=== PATIENT | female | born 1990 | race African-American/Black ===

== ENCOUNTER 2016-06-05 16:06 | Emergency (ER) | payer SELFPAY ==
[~2016-06-05] VITALS: Ht 157.5 cm; Wt 78.0 kg
[~2016-06-05 16:06] MED LIST: ERYT1O RIGHT EYE
[2016-06-05 16:07] VITALS: BP 129/84; PULSE 78; RESP 16; TEMP 98; O2SAT 98
--- NOTE | 2016-06-05 17:52 | PD ---
HPI . right ear pain/fullness for 3 weeks Chief Complaint: ENT Complaint Time Seen by Provider: 17:52 Travel History International Travel<30 days: No Contact w/Intl Traveler<30days: No Traveled to known affect area: No History of Present Illness HPI 26-year-old female who complains of right ear fullness and pain for 3 weeks. Patient says she has been having a full sensation in her ear and describes it as a water in her ear for the past 3 weeks. She has not seen anybody for these issues. She has not tried any oyso-ule-wglpctu medications. She does not have a primary care provider at this moment. She denies any fever, chills or cold symptoms. She has no other complaints. [facility] Past Medical History Medical History: Denies Significant Hx Diminished Hearing: No Tetanus Vaccination: Never Vaccinated Influenza Vaccination: No ?: Not LMP: 05/16/2016 Menopausal: No : 0 Tubal Ligation: Yes Past Surgical History Hysterectomy: Yes Social History Alcohol Use: No Tobacco Use: Yes (black and mild cigars ) Substance Use: No Allergies-Medications (Allergen,Severity, Reaction): Coded Allergies: No Known Allergies (Verified , 06/05/16) Reported Meds & Prescriptions Reported Meds & Active Scripts Active Ibuprofen 800 Mg Tab 800 Mg PO TID Augmentin (Amoxicillin-Clavulanate) 875-125 mg Tab 875 Mg PO BID not for use in CrCl <30 ml/min. Review of Systems General / Constitutional: No: Fever Eyes: No: Visual changes HENT: Positive: Earache, No: Headaches Cardiovascular: No: Chest Pain or Discomfort Respiratory: No: Shortness of Breath Gastrointestinal: No: Abdominal Pain Genitourinary: No: Dysuria Musculoskeletal: No: Pain Skin: No Rash Neurologic: No: Weakness Psychiatric: No: Depression Endocrine: No: Polydipsia Hematologic/Lymphatic: No: Easy Bruising Physical Exam Narrative GENERAL: AAO x 3, no acute distress, Well-nourished, well-developed patient. SKIN: Warm and dry. No visible rashes or bruising. HEAD: Normocephalic and atraumatic. EYES: No scleral icterus. No injection or drainage. EOM intact, PERRLA ENT: No nasal drainage noted. Mucous membranes pink. Airway patent. Right TM erythematous, bulging and purulence in the TM. No tenderness to the tragus. No mastoid tenderness. Posterior pharynx normal. NECK: Supple, trachea midline. No JVD. No lymphadenopathy. CARDIOVASCULAR: Regular rate and rhythm without murmurs, gallops, or rubs. RESPIRATORY: Breath sounds equal bilaterally. No accessory muscle use. No rhonchi or rales. GASTROINTESTINAL: Visual examination normal. EXTREMITIES: No cyanosis or edema. BACK: Nontender without obvious deformity. No CVA tenderness. PSYCH: AAO x 3, normal affect. Data Data Last Documented VS Vital Signs Date Time Temp Pulse Resp B/P Pulse Ox O2 Delivery O2 Flow Rate FiO2 06/05/16 16:07 98.0 78 16 129/84 98 Room Air MDM Medical Decision Making Medical Screen Exam Complete: Yes Emergency Medical Condition: Yes Medical Record Reviewed: Yes Differential Diagnosis Otitis media, otitis externa, mastoiditis Narrative Course 26-year-old female who complains of right ear fullness and pain for 3 weeks. Patient says she has been having a full sensation in her ear and describes it as a water in her ear for the past 3 weeks. She has not seen anybody for these issues. She has not tried any [id number] medications. She does not have a primary care provider at this moment. She denies any fever, chills or cold symptoms. She has no other complaints. Patient seen and examined. She appears to have a right suppurative otitis media. I do not find anything else on examination. At this point to her that she will need to take antibiotics and can use ibuprofen as needed for pain. I recommend no q tips. Patient verbalized understanding of instructions, questions were answered, and thanked me for their care. I advised them if their condition worsens, please return to the nearest emergency room for further care. Diagnosis Primary Impression: ROM (right otitis media) Qualified Code: H66.001 - Acute suppurative otitis media of right ear without spontaneous rupture of tympanic membrane, recurrence not specified Patient Instructions: General Instructions, Otitis Media (ED) Additional Instructions: Please return to emergency department if your symptoms return or worsen. Follow up with your primary care provider. Take medications as prescribed. Med/Other Pt SpecificInfo: Prescription(s) given Scripts Ibuprofen 800 Mg [id number] Mg PO TID #21 TAB Prov:Eli Steven MD 06/05/16 Amoxicillin-Clavulanate (Augmentin)875-125 mg [id number] Mg PO BID #20 TAB not for use in CrCl <30 ml/min. Prov:Eli Steven MD 06/05/16 Disposition: 01 DISCHARGE HOME Condition: Stable Barb Hanna Jun 05, 2016 17:52
[2016-06-05] MEDS ORDERED: AUGM875T PO (17:55)
[2016-06-05] MEDS ORDERED: IBUP800T23 PO (17:55)
== END 2016-06-05 18:15 | disposition home or self-care (01) ==
LOC: NEPK 16:06
DX: H66.91 Otitis media, unspecified, right ear (principal); Z72.0 Tobacco use
CPT/HCPCS: 99282